=== PATIENT | female | born 1990 | race Caucasian/White ===

== ENCOUNTER → 2017-07-08 | Outpatient (CLI) | payer BC ==
--- NOTE | 2017-07-08 10:43 | MR ---
EXAMINATION TYPE: MR lumbar spine wo con DATE OF EXAM: 07/08/2017 COMPARISON: NONE HISTORY: Radiculopathy, lumbar region TECHNIQUE: Multiplanar, multisequence images of the lumbar spine were acquired. The lumbar vertebral bodies maintain normal vertebral body heights and alignment. Bone marrow signal is within normal limits. Osseous structures appear intact. Conus medullaris is unremarkable and termi nates at L1. L1-L2: Normal disc appearance without desiccation. No herniation, protrusion or disc bulging. No ca nal stenosis is present. Foramina are patent bilaterally. L2-L3: Normal disc appearance without desiccation. No herniation, protrusion or disc bulging. No ca nal stenosis is present. Foramina are patent bilaterally. L3-L4: There is a small broad-based disc bulge without focality. No neural foraminal narrowing or spi nal canal stenosis. L4-L5: There is a left paracentral disc herniation extending into the left lateral recess although th is does not extend into the neural foramen. The neural foramen appear patent bilaterally. This is sup erimposed on a broad-based disc bulge. There is moderate resultant neural foraminal narrowing and imp ression on the forming L5 nerve root. L4 nerve root appears unaffected. L5-S1: Normal disc appearance without desiccation. No herniation, protrusion or disc bulging. No ca nal stenosis is present. Foramina are patent bilaterally. IMPRESSION: 1. Left paracentral disc herniation extending into the left lateral recess but not involving the left neural foramen and therefore impressing upon the forming L5 nerve root although the L4 nerve root ap pears unaffected. This also creates moderate spinal canal stenosis. 2. Small broad-based disc bulge at L3-L4 without spinal canal stenosis or neural foraminal narrowing.
== END ==
LOC: MERGE 09:45 → RADMRIMAIN 09:54
PROVIDERS: ATTEND Family Medicine
DX: M48.061 Spinal stenosis, lumbar region without neurogenic claudication (principal); M51.16 Intervertebral disc disorders with radiculopathy, lumbar region
CPT/HCPCS: 72148

== ENCOUNTER → 2017-10-25 | Outpatient (CLI) | payer BC ==
--- NOTE | 2017-10-25 16:37 | XR ---
EXAMINATION TYPE: XR chest 2V DATE OF EXAM: 10/25/2017 COMPARISON: NONE HISTORY: Presurgical study. TECHNIQUE: Frontal and lateral views of the chest are obtained. FINDINGS: There is no focal air space opacity, pleural effusion, or pneumothorax seen. The cardiac silhouette size is within normal limits. The osseous structures are intact. IMPRESSION: No acute cardiopulmonary process.
== END | disposition home or self-care (01) ==
LOC: RADXRMAIN 16:20
PROVIDERS: ATTEND Family Medicine
DX: Z01.818 Encounter for other preprocedural examination (principal)
CPT/HCPCS: 71046

== ENCOUNTER 2019-06-05 06:00 | Inpatient (IN) | payer BC, OTHER ==
[2019-06-05] MEDS ORDERED: METHYLERGONOVINE 0.2 MG/ML 1 ML AMP IM PRN (06:25)
[2019-06-05] MEDS ORDERED: OXYTOCIN 10 UNIT/ML 1 ML VIAL IM PRN (06:25)
[2019-06-05] MEDS ORDERED: TERBUTALINE 1 MG/ML VIAL SQ PRN (06:25)
[2019-06-05] MEDS ORDERED: CARBOPROST TROMETHAMINE 250 MCG/ML 1 ML AMP IM PRN (06:25)
[2019-06-05] MEDS ORDERED: LIDOCAINE 0.5% (PF) 5 MG/ML (50 ML SDV) SQ PRN (06:25)
[2019-06-05] MEDS ORDERED: OXYTOCIN 30 UNITS/500 ML NS 30 UNIT in SALINE 1 500ML.BAG IV SCH (06:30)
[2019-06-05 06:37] VITALS: BMI 28.0
[2019-06-05] MEDS: LACTATED RINGERS 1,000 ML IV SCH ×2 (06:37→09:48)
[2019-06-05 06:41] LABS: Basophils # (A) 0.1 k/uL (0-0.2); Basophils % (A) 1 %; Eosinophils # (A) 0.3 k/uL (0-0.7); Eosinophils % (A) 3 %; HCT 35.1 % (34.0-46.0); HGB 12.1 gm/dL (11.4-16.0); Lymphocytes # (A) 1.1 k/uL (1.0-4.8); Lymphocytes % (A) 12 %; MCH 31.8 pg (25.0-35.0); MCHC 34.5 g/dL (31.0-37.0); MCV 92.4 fL (80.0-100.0); Mean Platelet Volume 6.9; Monocytes # (A) 0.6 k/uL (0-1.0); Monocytes % (A) 7 %; Neutrophils # (A) 7.2 k/uL (1.3-7.7); Neutrophils % (A) 76 %; Platelet Count 280 k/uL (150-450); RDW 12.7 % (11.5-15.5); WBC 9.6 k/uL (3.8-10.6)
--- NOTE | 2019-06-05 08:04 | P.HPOB ---
History of Present Illness H&P Date: 06/05/19 Chief Complaint: at 39 and one sevenths weeks This is a 29 year old 2 para 1001 woman who has an estimated due date of 06/11/2019 based on first trimester ultrasound who presents at 39 and one sevenths weeks gestation for elective induction of labor with a favorable cervix. Her has been uncomplicated. She is a smoker and has cut down on her tobacco use during the . Obstetrical history significant for a previous term normal spontaneous vaginal delivery in 2011 of a 7 pound female . Laboratory data group B strep negative. Blood type O positive, antibody screen negative, rubella immune, VDRL nonreactive, hepatitis B surface antigen negative, HIV negative, gonorrhea and clinic cultures negative, glucose tolerance testing negative. Review of Systems All systems: negative Past Medical History Past Medical History: No Reported History Additional Past Medical History / Comment(s): 2011 History of Any Multi-Drug Resistant Organisms: None Reported Additional Past Surgical History / Comment(s): back surgery 2015 Past Anesthesia/Blood Transfusion Reactions: No Reported Reaction Past Psychological History: No Psychological Hx Reported Smoking Status: Current some day smoker Past Alcohol Use History: None Reported Past Drug Use History: None Reported - Past Family History Father Family Medical History: Hypertension Medications and Allergies Home Medications Medication Instructions Recorded Confirmed Type No Known Home Medications 06/05/19 06/05/19 History Allergies Allergy/AdvReac Type Severity Reaction Status Date / Time No Known Allergies Allergy Verified 06/05/19 06:22 Exam Vital Signs Temp Pulse Resp BP 06/05/19 06:33 97.7 F 90 16 119/66 Intake and Output 06/04/19 06/05/19 06/05/19 22:59 06:59 14:59 Other: Weight 78.925 kg Targeted physical exam is performed. This is a pleasant, visibly gravid female in no obvious distress. HEENT exam unremarkable. Breathing unlabored. Heart is a regular rate and rhythm. The abdomen is gravid, soft and nontender. Cervix is 3 cm dilated 60% effaced vertex -3 station. Artificial rupture of membranes is undertaken. Clear fluid is noted. heart tones are category 1. She is irregularly vanessa. Results Result Diagrams: 06/05/19 06:32 Assessment and Plan (1) 39 weeks gestation of Current Visit: Yes Status: Acute Code(s): Z3A.39 - 39 WEEKS GESTATION OF SNOMED Code(s): 26070545 (2) Tobacco abuse Current Visit: Yes Status: Acute Code(s): Z72.0 - TOBACCO USE SNOMED Code(s): 588141259 Plan: 29-year-old 2 para 1 woman admitted at 39 and one sevenths weeks gestation. Pitocin induction of labor has been initiated per protocol. heart tones are reassuring. She is group B strep negative and Rh+. May have an epidural anesthetic upon request. Anticipate normal spontaneous vaginal delivery.
[2019-06-05] MEDS ORDERED: ROPIVACAINE 100 MG, fentaNYL (PF) 200 MCG in SODIUM CHLORIDE 0.9% 76 ML EPIDURAL ONE (10:25)
--- NOTE | 2019-06-05 18:36 | P.PROBDLV ---
Vaginal Delivery Note - . Vaginal Delivery Note: Findings: Female in the vertex presentation with Apgars of 8 at 1 minute and 9 at 5 minutes weighing 7 lbs. 8 oz., 3415 g. Second-degree perineal laceration. Nuchal cord 1. Uterine atony with EBL of approximately 500 mL's. X Delivery summary: This is a 29 year old 2 para 1001 woman who is admitted at 39 and one sevenths weeks gestation for elective induction of labor. On admission her cervix was 3 cm dilated and 60% effaced. She underwent guevara ficial rupture of membranes and Pitocin induction of labor per protocol. She received an epidural anesthetic. She did reach complete cervical dilation by approximately 1730. She commenced pushing with excellent maternal effort. She did have some early decelerations consistent with head compression but overall category 2 reassuring tracing in the second stage. With she was repositioned, prepped and draped in the modified Jordyn position. With additional maternal effort the head did deliver from the right occiput anterior position. Nuchal cord 1 was reduced. The anterior followed by the posterior shoulders were delivered. The rest the was delivered onto the field. The nose and mouth were bulb suctioned. The was placed on the maternal abdomen and the cord was eventually clamped and cut. An intact, three-vessel cord placenta was expressed after an approximately 7 minute third stage of labor. The placenta appeared intact. The uterus was massaged and initially was noted to be firm and there was some atony. There was manual evacuation of clot from the low uterine segment and a very small piece of membranes. The patient received Pitocin intravenously as well as 0.2 mg of IM Methergine. The vagina was thoroughly inspected and a second-degree perineal laceration was noted which was repaired with 3-0 Vicryl suture. No further lacerations were noted. With uterine massage the uterus remained firm however clot was evacuated from the low uterine segment 2 additional times and in her bleeding eventually significantly decreased. Total EBL was approximately 500 mL's. Her uterus was drained by straight catheter for approximately 100 mL of clear urine. The both mother and were doing well post delivery in the room. We will monitor for uterine atony and continue Methergine as indicated as well as Pitocin intravenously. All counts are correct.
[2019-06-05] MEDS ORDERED: HYDROCORTISONE 2.5% RECTAL CREAM 30 GM TUBE RECTAL PRN (18:37)
[2019-06-05] MEDS ORDERED: ZOLPIDEM 5 MG TAB PO PRN (18:37)
[2019-06-05] MEDS ORDERED: diphenhydrAMINE 25 MG CAP PO PRN (18:37)
[2019-06-05] MEDS ORDERED: ACETAMINOPHEN TAB 325 MG TAB PO PRN (18:37)
[2019-06-05] MEDS ORDERED: diphenhydrAMINE 50 MG CAP PO PRN (18:37)
[2019-06-05] MEDS ORDERED: SIMETHICONE 80 MG CHEWABLE PO PRN (18:37)
[2019-06-05] MEDS ORDERED: LANOLIN CREAM 5 GM TUBE TOPICAL PRN (18:37)
[2019-06-05] MEDS ORDERED: diphenhydrAMINE 50 MG/ML 1 ML VIAL IVP PRN ×2 (18:37)
[2019-06-05] MEDS ORDERED: BENZOCAINE/MENTHOL SPRAY 1 GM/SPRAY AEROSOL TOPICAL PRN (18:37)
[2019-06-05] MEDS ORDERED: WITCH HAZEL 1 EACH MED..PAD TOPICAL PRN (18:37)
[2019-06-05] MEDS ORDERED: OXYTOCIN 20 UNITS/1000 ML NS 1,000 ML IV SCH (18:45)
[2019-06-05] MEDS ORDERED: BUTORPHANOL 1 MG/ML 1 ML VIAL IV PRN (19:00)
[2019-06-05] MEDS: METHYLERGONOVINE 0.2 MG TAB PO SCH (19:50)
[2019-06-05] MEDS: SENNOSIDES-DOCUSATE SODIUM 1 EACH TAB PO SCH (20:34)
[2019-06-06] MEDS: LACTATED RINGERS 1,000 ML IV SCH (05:50)
[2019-06-06] MEDS: METHYLERGONOVINE 0.2 MG TAB PO SCH ×2 (05:50→07:57)
[2019-06-06 07:48] LABS: Basophils # (A) 0.2 k/uL (0-0.2); Basophils % (A) 2 %; Eosinophils # (A) 0.1 k/uL (0-0.7); Eosinophils % (A) 1 %; HCT 34.4 % (34.0-46.0); HGB 11.8 gm/dL (11.4-16.0); Lymphocytes # (A) 0.8 k/uL (1.0-4.8); Lymphocytes % (A) 7 %; MCHC 34.4 g/dL (31.0-37.0); Monocytes # (A) 0.7 k/uL (0-1.0); Monocytes % (A) 6 %; Neutrophils # (A) 10.3 k/uL (1.3-7.7); Neutrophils % (A) 83 %; Platelet Count 259 k/uL (150-450); RDW 12.7 % (11.5-15.5); WBC 12.5 k/uL (3.8-10.6)
[2019-06-06] MEDS: SENNOSIDES-DOCUSATE SODIUM 1 EACH TAB PO SCH (08:01)
[2019-06-06] MEDS: IBUPROFEN 600 MG TAB PO PRN ×2 (08:01→15:22)
--- NOTE | 2019-06-06 08:25 | P.DS ---
Providers Date of admission: 06/05/19 06:06 Expected date of discharge: 06/06/19 Attending physician: Harriet Wang Primary care physician: Stated None - Discharge Diagnosis(es) (1) 39 weeks gestation of Current Visit: Yes Status: Acute (2) Tobacco abuse Current Visit: Yes Status: Acute (3) Nuchal cord Current Visit: Yes Status: Acute (4) Normal spontaneous vaginal delivery Current Visit: Yes Status: Acute (5) Perineal laceration with delivery, second degree Current Visit: Yes Status: Acute Hospital Course: This is a 29-year-old 2 now para 2 woman who is admitted at 39 and one sevenths weeks gestation for elective induction of labor. She had an uncomp licated however is a smoker. Following admission she underwent a Pitocin induction of labor per protocol with artificial rupture of membranes. She had clear fluid. She received an epidural anesthetic. She went on to have an uncomplicated delivery of a liveborn female infant over second-degree perineal laceration. There was a nuchal cord. Apgars were 8 at 1 minute and 9 at 5 minutes and baby B weighed 7 lbs. 8 oz. She did have some mild uterine atony post delivery that was managed with IV Pitocin and IM Methergine. Patient was very uncomfortable with fundal massage therefore was continued on oral Methergine 3 doses through the night to promote uterine tone. By the morning of day #1 she reported mild to moderate lochia with no large clots and no significant cramping. Her vital signs were stable and her postdelivery hemoglobin was greater than 11. She was therefore discharged home at 24 hours postdelivery with routine instructions for care and follow-up. Procedures: Patient Condition at Discharge: Good Plan - Discharge Summary New Discharge Prescriptions: No Action No Known Home Medications Discharge Medication List No Known Home Medications 06/05/19 [History] Follow up Appointment(s)/Referral(s): Harriet Wang MD [STAFF PHYSICIAN] - 6 Weeks Activity/Diet/Wound Care/Special Instructions: Follow-up in the office in 6 weeks . Call with any concerning signs or symptoms including heavy vaginal bleeding, severe abdominal pain, fever greater than 101, swelling or redness of the lower extremities, foul vaginal discharge, or signs of depression. Nothing in the vagina for 6 weeks after delivery, specifically no intercourse. May use [id number] Tylenol and/or ibuprofen as needed for pain. Discharge Disposition: HOME SELF-CARE
[2019-06-06 15:28] VITALS: BP 106/58; PULSE 93; RESP 17; TEMP 98
== END 2019-06-06 18:35 | disposition home or self-care (01) | DRG 807 ==
LOC: 4FBP 06:06
PROVIDERS: ADMIT Obstetrics & Gynecology; ATTEND Obstetrics & Gynecology
PROC: 10E0XZZ Delivery of Products of Conception, External Approach (ICD-10-PCS; principal; 2019-06-05)
PROC: 0KQM0ZZ Repair Perineum Muscle, Open Approach (ICD-10-PCS; 2019-06-05)
PROC: 10907ZC Drainage of Amniotic Fluid, Therapeutic from Products of Conception, Via Natural or Artificial Opening (ICD-10-PCS; 2019-06-05)
PROC: 3E033VJ Introduction of Other Hormone into Peripheral Vein, Percutaneous Approach (ICD-10-PCS; 2019-06-05)
PROC: 00HU33Z Insertion of Infusion Device into Spinal Canal, Percutaneous Approach (ICD-10-PCS; 2019-06-05)
PROC: 3E0R3BZ Introduction of Anesthetic Agent into Spinal Canal, Percutaneous Approach (ICD-10-PCS; 2019-06-05)
DX: O69.81X0 Labor and delivery complicated by cord around neck, without compression, not applicable or unspecified (principal); Z37.0 Single live birth; O62.2 Other uterine inertia; O70.1 Second degree perineal laceration during delivery; O99.334 Smoking (tobacco) complicating childbirth; F17.200 Nicotine dependence, unspecified, uncomplicated; O76 Abnormality in fetal heart rate and rhythm complicating labor and delivery; Z3A.39 39 weeks gestation of pregnancy; Z82.49 Family history of ischemic heart disease and other diseases of the circulatory system
CPT/HCPCS: 85025; 86850; 86900; 86901